=== PATIENT | female | born 1965 | race Two or more races ===

== ENCOUNTER 2020-04-24 05:45 | Day surgery (SDC) | payer OTHER ==
[~2020-04-24 05:45] MED LIST: LEVOTHYROXINE25 MCG PO
== END 2020-04-24 16:30 | disposition home or self-care (01) ==
LOC: CIR.AMB 05:45 → ADM 09:15 → CIR.AMB 16:18
PROVIDERS: ATTEND Colon & Rectal Surgery
DX: K60.3 Anal fistula (principal)

== ENCOUNTER 2021-01-08 05:26 | Day surgery (SDC) | payer OTHER | END 2021-01-08 13:40 | disposition home or self-care (01) | LOC: CIR.AMB 05:26 | PROVIDERS: ATTEND Colon & Rectal Surgery | DX: K60.5 Anorectal fistula (principal); Z20.822 Contact with and (suspected) exposure to COVID-19 ==